=== PATIENT | female | born 1975 | race Caucasian/White ===

== ENCOUNTER → 2019-10-12 14:33 | Outpatient (CLI) | payer OTHER, SELFPAY ==
--- NOTE | 2019-10-12 14:37 | DI.US.S_ITS ---
PROCEDURE: US ABDOMEN COMPLETE INDICATIONS: CHANGE IN STOOLS, MUCUS IN STOOLS, DIARRHEA TECHNIQUE: Real-time scanning was performed of the abdominal and retroperitoneal organs, with image documentation. COMPARISON: [facility], [place], ABDOMEN COMPLETE, 07/24/2015, 9:59. FINDINGS: Liver: Liver is normal in size and homogeneous in echotexture. A 7 mm calcification can be seen within the liver. Gallbladder: Removed. Biliary ducts: Intrahepatic bile ducts are non-dilated. Extrahepatic bile duct caliber measures 7.5 mm, which is near the upper limits of normal for a post cholecystectomy patient. Pancreas: Not well-seen. Spleen: Spleen is normal in size and homogeneous in echotexture. Kidneys: Kidneys are normal in size and echotexture. Right kidney measures 10.3 cm long; left kidney measures 10.8 cm long. No hydronephrosis or nephrolithiasis. No solid masses. Aorta: Visualized aorta is normal in caliber at less than 3 cm. Iliacs: Proximal common iliac arteries are normal in caliber at less than 2.5 cm. IVC: Intrahepatic inferior vena cava is patent. Miscellaneous: No free abdominal fluid. IMPRESSION: Status post cholecystectomy. The common bile duct measures at the upper limits of normal for a post cholecystectomy patient. As clinically appropriate, an MRCP could be considered for further evaluation (assuming that there is no contraindication to MRI). There is a 7 mm calcification incidentally noted within the liver. Nonvisualization of the pancreas. Dictated by: Ben Shaikh M.D. on 10/12/2019 at 16:31 Approved by: Ben Shaikh M.D. on 10/12/2019 at 16:32
--- NOTE | 2019-10-12 14:37 | DI.US.S_ITS ---
PROCEDURE: US PELVIC COMPLETE INDICATIONS: PELVIC PAIN AND UTERINE MASS TECHNIQUE: Real-time scanning was performed of the pelvic organs, with image documentation. Additional endovaginal scanning was necessary due to incomplete visualization of the adnexal and endometrial structures by transabdominal scanning. COMPARISON: [facility], [place], PELVIC COMPLETE, 07/24/2015, 10:12. [facility], , US ABDOMEN COMPLETE, 10/12/2019, 15:30. FINDINGS: Transabdominal scanning: Limited scanning through the kidneys shows no hydronephrosis. No pathologic free abdominal or pelvic fluid. Endovaginal scanning: Uterus: Uterus demonstrates a generalized heterogeneous appearance, yet without focal fibroids identified. Uterus is normal in size at 7.3 x 3.3 x 4.1 cm. The endometrium measures 2-3 mm in combined thickness. Ovaries: The right ovary measures 2.5 x 1.7 x 1.5 cm. The left ovary measures 2.9 x 2.1 x 1.6 cm. The ovaries have a normal sonographic appearance, with note made of physiologic appearing cystic follicles involving the left ovary. No adnexal masses are seen. IMPRESSION: No significant pelvic ultrasound abnormality is seen. Dictated by: Ben Shaikh M.D. on 10/12/2019 at 16:30 Approved by: Ben Shaikh M.D. on 10/12/2019 at 16:31
== END ==
PROVIDERS: Family Provider Physician Assistant; PCP Physician Assistant; Referring Provider Nurse Practitioner; Visit Provider Nurse Practitioner
DX: R10.2 Pelvic and perineal pain (principal); N85.8 Other specified noninflammatory disorders of uterus; R19.5 Other fecal abnormalities; R19.7 Diarrhea, unspecified; Z90.49 Acquired absence of other specified parts of digestive tract
CPT/HCPCS: 76700; 76830; 76856

== ENCOUNTER → 2019-10-18 19:09 | Outpatient (CLI) | payer OTHER, SELFPAY ==
--- NOTE | 2019-10-18 19:10 | DI.MRI.S_ITS ---
PROCEDURE: MR ABDOMEN WO CON INDICATIONS: abnormal ultrasound TECHNIQUE: Coronal HASTE through the abdomen, axial 2-D FLASH in- and [id number], and breath-hold T2 FSE with fat saturation through the biliary system and pancreas. Oblique coronal and axial thin-slice HASTE, radial thick-slab HASTE centered on the extrahepatic bile ducts. Intravenous secretin: Not requested. COMPARISON: [facility], [place], HEPATOBILIARY SCAN WITH CCK, 03/19/2016, 14:24. [facility], , US ABDOMEN COMPLETE, 10/12/2019, 15:30. FINDINGS: Image quality: Excellent. Pancreas and biliary system: Intra- and extra-hepatic biliary ducts are non dilated. CBD measures 6 mm, (3/16). This is within normal exits in this post cholecystectomy patient. Pancreas is normal in morphology, without adjacent soft tissue edema. Pancreatic duct is normal in caliber, without developmental anomalies. Other solid organs: Liver is normal in size. Small simple cyst in the right lobe liver. No significant steatosis. Spleen is normal in size. No adrenal nodules. Both kidneys are normal in size, without hydronephrosis. Nodes and vessels: No retroperitoneal or mesenteric adenopathy by size criteria. Aorta and inferior vena cava are normal in size. Bowel and peritoneum: Unenhanced bowel loops are normal in caliber. No dilated loops of bowel. The left colon is decompressed. No free fluid. Lung bases: No basal pleural effusions. Heart size is normal. Bones and soft tissues: No ventral hernias. Bone marrow is of normal overall signal. IMPRESSION: Negative exam. No biliary ductal dilatation. Postcholecystectomy. Dictated by: Galen Kelsey M.D. on 10/18/2019 at 20:46 Approved by: Galen Kelsey M.D. on 10/18/2019 at 20:50
== END ==
PROVIDERS: Family Provider Physician Assistant; PCP Nurse Practitioner; Referring Provider Nurse Practitioner; Visit Provider Nurse Practitioner
DX: R93.89 Abnormal findings on diagnostic imaging of other specified body structures (principal); R10.9 Unspecified abdominal pain; R14.0 Abdominal distension (gaseous); R19.7 Diarrhea, unspecified; K76.89 Other specified diseases of liver; Z90.49 Acquired absence of other specified parts of digestive tract
CPT/HCPCS: 74181

== ENCOUNTER 2020-01-30 09:45 | Outpatient (RCR) | payer OTHER, SELFPAY ==
--- NOTE | 2020-01-02 13:11 | PT.OIE ---
Current Diagnoses Overactive bladder (01/02/20) Past Medical History (Last Reviewed 10/09/19 @ 11:57 by GILBERTO Kenney) Overactive bladder (Chronic) Past Surgical History (Last Reviewed 10/09/19 @ 11:57 by GILBERTO Kenney) Status post endometrial ablation Status post laparoscopic cholecystectomy Visit Care Team Role Provider Type GILBERTO Kenney Attending Provider [employer] Associate Primary Care Provider Referring Provider Specialty: [facility] Address: [address] [place] [address], [facility] Email: [email or web address] Physical Therapy Initial Evaluation PT-OP-A Visit Information Start: 01/02/20 07:47 Freq: Status: Active Protocol: Document 01/02/20 07:50 [facility] (Rec: 01/02/20 08:38 [facility] [id number]) Out-Patient Physical Therapy Visit Information Visit Information Visit Type Initial Evaluation Visit Start Time 08:15 Visit Stop Time 09:00 Total Visit Minutes 45 Visit Number 1 Evaluation Information Evaluation Date 01/02/20 PT-OP-B Current Condition Start: 01/02/20 07:47 Freq: Status: Active Protocol: Document 01/02/20 07:50 [facility] (Rec: 01/02/20 08:38 [facility] [id number]) Current Condition History of Current Condition Onset Date After her second Current Complaints c/o incomplete emptying, frequency and urgency History of Current Condition After having her second child Brook reports she saw a urologist as she was voiding all the time. Saw urologist and was told she had a tilted bladder. In Sep went into urgent care due to sharp pain with urination, pain in side and diarrhea. Her labs were negative for a infection and she had a MRI which was also negative. She is scheduled for a colonoscopy next week. She does describe a right side pain and pelvic pain that is intermittent and she is wondering if it is cyclical. Brook reports having a uterine ablation 8 years ago. Had gall bladder surgery 2016 due to side pains. Since her gall bladder surgery she has had more complaints of diarrhea. Other past medical history includes 2 child births 1 vaginal and 1 was a emergency . Was given hyoscyamine and this helps with the feeling like she has to void but not the actual voiding. After her uterine ablation she did feel cramping in the vaginal wall and felt cramping on the left side of the pelvic floor. This cramping now is intermittent and there are times when she doesn't notice it at all. Treatment Goals Patient/Caregiver Goals The patients goals are to improve bladder emptying and decrease urinary frequency and urgency Current Functional Impairments (Reported) Functional Limitations- Recreation/ The patient reports she avoids Hobbies places that don't have a restroom so this limits outings and recreation with her family. PT-OP-C Subjective Start: 01/02/20 07:47 Freq: Status: Active Protocol: Document 01/02/20 12:36 [facility] (Rec: 01/02/20 13:11 [facility] [id number]) Patient Questionnaires Pelvic Pain and Urgency/Frequency Patient Symptom Scale Pelvic Pain Score 17 PT-OP-F Manual Assessment Start: 01/02/20 07:47 Freq: Status: Active Protocol: Document 01/02/20 12:36 [facility] (Rec: 01/02/20 13:11 [facility] [email or web address]) Manual Assessments Soft Tissue Assessment Soft Tissue Mobility Assessment Scar tissue restrictions on the right side of the suprapubic fascia and over the incision, seperate incision due to an infection does have some decreased mobility on the right side, there is decreased bladder mobility in a superior direction Levator ani tightness and restriction on the left side PT-OP-I Pelvic Floor Start: 01/02/20 07:47 Freq: Status: Active Protocol: Document 01/02/20 12:36 [facility] (Rec: 01/02/20 13:11 [facility] [email or web address]) Pelvic Floor Assessment Urine Pelvic Floor Surgery No Urinary Symptoms Urge Sensation,Incomplete Emptying Leakage Size Small Leakage Cause Urge Other Leakage Causes leakage with strong cough or sneeze, can also occur despite activity and consists of a few drops, the patient wears panti koch Voiding Frequency 10+ times per day Nocturia 5 Urine Pad Type Panty Liner Pelvic Clock Pelvic Clock 12-3 Atrophy Pelvic Clock 3-6 Guarding Pelvic Clock 9-12 Atrophy Pelvic Clock Other tightness found on the left lateral wall of the levator ani, difficulty relaxing the pelvic floor following a contraction, able to facilitate a contraction of the anterior pelvic floor however this is weaker. Prolapse Uterine Prolapse Grade 1 Cystocele Grade 1 Contraction Ability Voluntary Contraction Weak Voluntary Relaxation Weak Manual Muscle Testing Left 3 Manual Muscle Testing Right 3 Manual Muscle Testing Anterior 3 Manual Muscle Testing Posterior 3 PT-OP-Q Treatments Start: 01/02/20 07:47 Freq: Status: Active Protocol: Document 01/02/20 12:36 [facility] (Rec: 01/02/20 13:11 [facility] [email or web address]) Therapeutic Exercises Supine Exercises 2 Supine Exercise Name pelvic floor long holds Reps/Minutes long holds x 10 reps hold x 10 reps and rest x 10 reps 1 Supine Exercise Name Happy baby stretch Side bilateral Reps/Minutes holding for 1-2 minutes Prone Exercises 1 Prone Exercise Name prone on elbows stretch for the anterior abdominal fascia Reps/Minutes 1-2 reps hold 30 seconds- 1 min Self-Care/Home Management Treatment Education Patient Education Home Exercise Program Other Education education on toileting strategies PT-OP-T Assessment and Plan Start: 01/02/20 07:47 Freq: Status: Active Protocol: Document 01/02/20 12:36 [facility] (Rec: 01/02/20 13:11 [facility] [id number]) Physical Therapy Assessment Rehab Potential Rehabilitation Potential Excellent Evaluation Complexity Number of Personal Factors/Comorbidities 0 Number of Body Systems Impaired 1-2 Clinical Presentation at Evaluation Stable Impairments Impairments Activity Tolerance,Soft Tissue Mobility,Strength Other Impairments inability to fully empty the bladder, frequent voiding, nocturia Goals Five Impairment Decreased strength of the anterior pelvic floor 3/5 [employer] Goal (LTG) Brook demonstrates improved strength of the anterior pelvic floor to 4/5 or better to help support the bladder for improved ability to void LTG Duration 8 weeks Four Impairment Scar tissue in the suprapubic fascia and decreased bladder mobility Short Term Goal (STG) With manual therapy techniques scar tissue is decreased and there is improved bladder mobility helping with both filling and emptying of the bladder STG Duration 5 weeks Three Impairment muscle guarding and spasm of the left lateral wall of the levator ani Short Term Goal (STG) Brook is educated in pelvic floor relaxation of the left lateral wall. She is educated when toileting to relax her pelvic floor to improve her ability to void. STG Duration 4 weeks Two Impairment Nocturia voiding up to 5 times at night [employer] Services Instructor Goal (LTG) Brook is able to reduce night time voiding to 0-1 time per night LTG Duration 8 Weeks One Impairment difficulty voiding and fully emptying the bladder [employer] Services Instructor Goal (LTG) Brook is able to sit to void and feel as if she is fully emptying her bladder. She is voiding 1 xm every 2-3 hours during the day. LTG Duration 8 weeks Assessment Summary Assessment Brook presents to physical therapy today with symptoms of inability to fully empty her bladder. She describes urgency and when she tries to void she has to make several attempts to fully empty. At night she will void 5-6 times before being able to fall asleep. She notes that she always has the feeling she needs to void. She has had symptoms of a UTI but recent lab work is negative for this. She is also scheduled for a colonoscopy next Tuesday as she has been having episodes of diarrhea since her gall bladder was removed. She does describe pelvic heaviness but only intermittent. She has had a uterus ablation so isn't having a menstrual cycle but does feel her heaviness can be cyclical. With examination today Brook presents with ability to facilitate a contraction of all parts of her levator ani. She is weaker in the anterior pelvic floor and left side of the levator ani is in a guarded hypertonic state. It is difficult for her to relax the left lateral wall. There is a grade I cystocele and uterine prolapse noted. Brook does have some scar tissue in the suprapubic fascia from her scar and has decreased bladder mobility in a superior direction. She also has a scar from a infection she had in the pelvis which there is some scar tissue surrounding this area as well. Treatment for Brook will be to work on pelvic floor endurance and increasing the anterior pelvic floor strength to help support the bladder. Treatment will also focus on the left lateral wall to relax . In order to void fully the pelvic floor needs to be able to fully relax. The cystocele may also be contributing to difficulty fully emptying so the goal will be to improve bladder support and decrease downward descent to improve the ability to void. Brook is a good candidate for PT and EMG biofeedback for pelvic floor strengthening will begin next visit. Physical Therapy Plan Frequency and Duration Frequency of Treatment 1x/Week Duration of Treatment 8 Plan of Care Start Date 01/02/20 Plan of Care End Date 02/27/20 Therapeutic Interventions Therapeutic Interventions Home Exercise Program, Neuromuscular Re-education, Patient/Caregiver Education, Self-Care/Home Management,Soft Tissue Mobilization, Therapeutic Exercises Modalities Biofeedback Next Visit Focus/Plan Next Note Type Treatment Note Next Visit Plan Review stretches established today and begin EMG biofeedback for pelvic floor endurance training.
--- NOTE | 2020-01-07 16:41 | PT.OTN ---
Current Diagnoses Overactive bladder (01/07/20) Pelvic muscle wasting (01/07/20) Nocturia (01/07/20) Physical Therapy Treatment Note PT-OP-A Visit Information Start: 01/02/20 07:47 Freq: Status: Active Protocol: Document 01/07/20 13:49 [facility] (Rec: 01/07/20 13:54 [facility] [id number]) Out-Patient Physical Therapy Visit Information Visit Information Visit Type Treatment Note Visit Note Stretching was easy, kegels were not easy, hard to maintain. Frustrating to try and maintain the hold Visit Start Time 13:50 Visit Stop Time 14:35 Total Visit Minutes 45 Visit Number 2 Evaluation Information Evaluation Date 01/02/20 PT-OP-B Current Condition Start: 01/02/20 07:47 Freq: Status: Active Protocol: Document 01/02/20 07:50 [facility] (Rec: 01/02/20 08:38 [facility] [id number]) Current Condition History of Current Condition Onset Date After her second Current Complaints c/o incomplete emptying, frequency and urgency History of Current Condition After having her second child Brook reports she saw a urologist as she was voiding all the time. Saw urologist and was told she had a tilted bladder. In Sep went into urgent care due to sharp pain with urination, pain in side and diarrhea. Her labs were negative for a infection and she had a MRI which was also negative. She is scheduled for a colonoscopy next week. She does describe a right side pain and pelvic pain that is intermittent and she is wondering if it is cyclical. Brook reports having a uterine ablation 8 years ago. Had gall bladder surgery 2016 due to side pains. Since her gall bladder surgery she has had more complaints of diarrhea. Other past medical history includes 2 child births 1 vaginal and 1 was a emergency . Was given hyoscyamine and this helps with the feeling like she has to void but not the actual voiding. After her uterine ablation she did feel cramping in the vaginal wall and felt cramping on the left side of the pelvic floor. This cramping now is intermittent and there are times when she doesn't notice it at all. Treatment Goals Patient/Caregiver Goals The patients goals are to improve bladder emptying and decrease urinary frequency and urgency Current Functional Impairments (Reported) Functional Limitations- Recreation/ The patient reports she avoids Hobbies places that don't have a restroom so this limits outings and recreation with her family. PT-OP-C Subjective Start: 01/02/20 07:47 Freq: Status: Active Protocol: Document 01/07/20 16:33 [facility] (Rec: 01/07/20 16:41 [facility] [email or web address]) OP-PT Subjective Patient Comments Patient Comments pt reports it has been difficult to do the endurance exercises as she feels she has a difficult time maintaining the hold time. Pt reports she has a colonoscopy on tuesday Patient Reported Progress Same PT-OP-F Manual Assessment Start: 01/02/20 07:47 Freq: Status: Active Protocol: Document 01/02/20 12:36 [facility] (Rec: 01/02/20 13:11 [facility] [email or web address]) Manual Assessments Soft Tissue Assessment Soft Tissue Mobility Assessment Scar tissue restrictions on the right side of the suprapubic fascia and over the incision, seperate incision due to an infection does have some decreased mobility on the right side, there is decreased bladder mobility in a superior direction Levator ani tightness and restriction on the left side PT-OP-I Pelvic Floor Start: 01/02/20 07:47 Freq: Status: Active Protocol: Document 01/02/20 12:36 [facility] (Rec: 01/02/20 13:11 [facility] [email or web address]) Pelvic Floor Assessment Urine Pelvic Floor Surgery No Urinary Symptoms Urge Sensation,Incomplete Emptying Leakage Size Small Leakage Cause Urge Other Leakage Causes leakage with strong cough or sneeze, can also occur despite activity and consists of a few drops, the patient wears panti koch Voiding Frequency 10+ times per day Nocturia 5 Urine Pad Type Panty Liner Pelvic Clock Pelvic Clock 12-3 Atrophy Pelvic Clock 3-6 Guarding Pelvic Clock 9-12 Atrophy Pelvic Clock Other tightness found on the left lateral wall of the levator ani, difficulty relaxing the pelvic floor following a contraction, able to facilitate a contraction of the anterior pelvic floor however this is weaker. Prolapse Uterine Prolapse Grade 1 Cystocele Grade 1 Contraction Ability Voluntary Contraction Weak Voluntary Relaxation Weak Manual Muscle Testing Left 3 Manual Muscle Testing Right 3 Manual Muscle Testing Anterior 3 Manual Muscle Testing Posterior 3 PT-OP-Q Treatments Start: 01/02/20 07:47 Freq: Status: Active Protocol: Document 01/07/20 16:33 [facility] (Rec: 01/07/20 16:41 [facility] [id number]) Therapeutic Exercises Supine Exercises 3 Supine Exercise Name ball squeeze with pelvic floor contraction Reps/Minutes x 10 2 Supine Exercise Name pelvic floor long holds Reps/Minutes long holds x 10 reps hold x 10 reps and rest x 10 reps Comments began EMG biofeedback today for visual image with pelvic floor contraction 1 Supine Exercise Name Happy baby stretch Side bilateral Reps/Minutes holding for 1-2 minutes Prone Exercises 1 Prone Exercise Name prone on elbows stretch for the anterior abdominal fascia Reps/Minutes 1-2 reps hold 30 seconds- 1 min Manual Therapy Treatment Soft Tissue Mobilization 3 Body Location bladder mobilizations in a superior direction and side to side Comments bladder mobilizations 2 Body Location ILU massage over the colon and pt instructed in this for home 1 Body Location scar tissue release in the suprapubic fascia PT-OP-T Assessment and Plan Start: 01/02/20 07:47 Freq: Status: Active Protocol: Document 01/07/20 16:33 [facility] (Rec: 01/07/20 16:41 [facility] [id number]) Physical Therapy Assessment Assessment Summary Assessment We began scar tissue massage, MFR, and bladder mobilizations today and Brook tolerated this well. She is having difficulty with her long sustained pelvic floor contractions. I did give her a ball squeeze to try to help with endurance holds. She does feel like she keeps her abdominal wall tight throughout the day. She would benefit to progressing to quadruped TA and cat cow. Physical Therapy Plan Next Visit Focus/Plan Next Note Type Treatment Note Next Visit Plan review stretches and begin TA contract relax and cat cow
--- NOTE | 2020-01-16 16:18 | PT.OTN ---
Current Diagnoses Overactive bladder (01/16/20) Pelvic muscle wasting (01/16/20) Nocturia (01/16/20) Physical Therapy Treatment Note PT-OP-A Visit Information Start: 01/02/20 07:47 Freq: Status: Active Protocol: Document 01/16/20 11:18 [facility] (Rec: 01/16/20 13:35 [facility] [id number]) Out-Patient Physical Therapy Visit Information Visit Information Visit Type Treatment Note Visit Start Time 11:15 Visit Stop Time 12:00 Total Visit Minutes 45 Visit Number 3 PT-OP-B Current Condition Start: 01/02/20 07:47 Freq: Status: Active Protocol: Document 01/02/20 07:50 [facility] (Rec: 01/02/20 08:38 [facility] [id number]) Current Condition History of Current Condition Onset Date After her second Current Complaints c/o incomplete emptying, frequency and urgency History of Current Condition After having her second child Brook reports she saw a urologist as she was voiding all the time. Saw urologist and was told she had a tilted bladder. In Sep went into urgent care due to sharp pain with urination, pain in side and diarrhea. Her labs were negative for a infection and she had a MRI which was also negative. She is scheduled for a colonoscopy next week. She does describe a right side pain and pelvic pain that is intermittent and she is wondering if it is cyclical. Brook reports having a uterine ablation 8 years ago. Had gall bladder surgery 2016 due to side pains. Since her gall bladder surgery she has had more complaints of diarrhea. Other past medical history includes 2 child births 1 vaginal and 1 was a emergency . Was given hyoscyamine and this helps with the feeling like she has to void but not the actuall voiding. After her uterine ablation she did feel cramping in the vaginal wall and felt cramping on the left side of the pelvic floor. This cramping now is intermittent and there are times when she doesn't notice it at all. Treatment Goals Patient/Caregiver Goals The patients goals are to improve bladder emptying and decrease urinary frequency and urgency Current Functional Impairments (Reported) Functional Limitations- Recreation/ The patient reports she avoids Hobbies places that don't have a restroom so this limits outings and recreation with her family. PT-OP-C Subjective Start: 01/02/20 07:47 Freq: Status: Active Protocol: Document 01/16/20 11:18 [facility] (Rec: 01/16/20 13:35 [facility] [id number]) OP-PT Subjective Patient Comments Patient Comments Had her colonscopy on tuesday and it was negative. They found a polyup but that was it . She was not able to do all her self massage work due to feeling of swelling and bloating following her colonoscopy. PT-OP-F Manual Assessment Start: 01/02/20 07:47 Freq: Status: Active Protocol: Document 01/02/20 12:36 [facility] (Rec: 01/02/20 13:11 [facility] [email or web address]) Manual Assessments Soft Tissue Assessment Soft Tissue Mobility Assessment Scar tissue restrictions on the right side of the suprapubic fascia and over the incision, seperate insicion due to an infection does have some decreased mobility on the right side, there is decreased bladder mobility in a superior direction Levator ani tightness and restriction on the left side PT-OP-I Pelvic Floor Start: 01/02/20 07:47 Freq: Status: Active Protocol: Document 01/02/20 12:36 [facility] (Rec: 01/02/20 13:11 [facility] [email or web address]) Pelvic Floor Assessment Urine Pelvic Floor Surgery No Urinary Symptoms Urge Sensation,Incomplete Emptying Leakage Size Small Leakage Cause Urge Other Leakage Causes leakage with strong cough or sneeze, can also occur despite activity and consists of a few drops, the patient wears panti koch Voiding Frequency 10+ times per day Nocturia 5 Urine Pad Type Panty Liner Pelvic Clock Pelvic Clock 12-3 Atrophy Pelvic Clock 3-6 Guarding Pelvic Clock 9-12 Atrophy Pelvic Clock Other tightness found on the left lateral wall of the levator ani, difficulty relaxing the pelvic floor following a contraction, able to facilitate a contraction of the anterior pelvic floor however this is weaker. Prolapse Uterine Prolapse Grade 1 Cystocele Grade 1 Contraction Ability Voluntary Contraction Weak Voluntary Relaxation Weak Manual Muscle Testing Left 3 Manual Muscle Testing Right 3 Manual Muscle Testing Anterior 3 Manual Muscle Testing Posterior 3 PT-OP-Q Treatments Start: 01/02/20 07:47 Freq: Status: Active Protocol: Document 01/16/20 16:14 [facility] (Rec: 01/16/20 16:18 [facility] [email or web address]) Therapeutic Exercises Supine Exercises 4 Supine Exercise Name Roll outs with theraband Comments also gave a static stretch rolling out to relax the pelvic floor 3 Supine Exercise Name ball squeeze with pelvic floor contraction Reps/Minutes x 10 10 second hold with 10 second relaxation Prone Exercises 1 Prone Exercise Name prone on elbows stretch for the anterior abdominal fascia Reps/Minutes 1-2 reps hold 30 seconds- 1 min Manual Therapy Treatment Soft Tissue Mobilization 3 Body Location bladder mobilizations in a superior direction and side to side Comments bladder mobilizations 2 Body Location ILU massage over the colon and pt instructed in this for home 1 Body Location scar tissue release in the suprapubic fascia PT-OP-T Assessment and Plan Start: 01/02/20 07:47 Freq: Status: Active Protocol: Document 01/16/20 16:14 [facility] (Rec: 01/16/20 16:18 [facility] [email or web address]) Physical Therapy Assessment Assessment Summary Assessment Using the ball to help her with endurance holds, NMES may be useful to start next visit if still having a difficult time with long holds, Pelvic floor tone started at 4.0 today but was able to relax down to 2. Average was 11.9 with 28.7 uv max. Physical Therapy Plan Frequency and Duration Frequency of Treatment 1x/Week Duration of Treatment 8 Plan of Care Start Date 01/02/20 Plan of Care End Date 02/27/20
--- NOTE | 2020-01-23 12:20 | PT.OTN ---
Current Diagnoses Overactive bladder (01/23/20) Pelvic muscle wasting (01/23/20) Nocturia (01/23/20) Physical Therapy Treatment Note PT-OP-A Visit Information Start: 01/02/20 07:47 Freq: Status: Active Protocol: Document 01/23/20 11:18 [facility] (Rec: 01/23/20 12:20 [facility] [id number]) Out-Patient Physical Therapy Visit Information Visit Information Visit Type Treatment Note Visit Start Time 11:15 PT-OP-B Current Condition Start: 01/02/20 07:47 Freq: Status: Active Protocol: Document 01/02/20 07:50 [facility] (Rec: 01/02/20 08:38 [facility] [id number]) Current Condition History of Current Condition Onset Date After her second Current Complaints c/o incomplete emptying, frequency and urgency History of Current Condition After having her second child Brook reports she saw a urologist as she was voiding all the time. Saw urologist and was told she had a tilted bladder. In Sep went into urgent care due to sharp pain with urination, pain in side and diarrhea. Her labs were negative for a infection and she had a MRI which was also negative. She is scheduled for a colonoscopy next week. She does describe a right side pain and pelvic pain that is intermittent and she is wondering if it is cyclical. Brook reports having a uterine ablation 8 years ago. Had gall bladder surgery 2016 due to side pains. Since her gall bladder surgery she has had more complaints of diarrhea. Other past medical history includes 2 child births 1 vaginal and 1 was a emergency . Was given hyoscyamine and this helps with the feeling like she has to void but not the actuall voiding. After her uterine ablation she did feel cramping in the vaginal wall and felt cramping on the left side of the pelvic floor. This cramping now is intermittent and there are times when she doesn't notice it at all. Treatment Goals Patient/Caregiver Goals The patients goals are to improve bladder emptying and decrease urinary frequency and urgency Current Functional Impairments (Reported) Functional Limitations- Recreation/ The patient reports she avoids Hobbies places that don't have a restroom so this limits outings and recreation with her family. PT-OP-C Subjective Start: 01/02/20 07:47 Freq: Status: Active Protocol: Document 01/23/20 11:18 [facility] (Rec: 01/23/20 12:20 [facility] [id number]) OP-PT Subjective Patient Comments Patient Comments pt ran and did pilates today prior to PT, has been trying to do the 10 second hold time. 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 PT-OP-F Manual Assessment Start: 01/02/20 07:47 Freq: Status: Active Protocol: Document 01/02/20 12:36 [facility] (Rec: 01/02/20 13:11 [facility] [email or web address]) Manual Assessments Soft Tissue Assessment Soft Tissue Mobility Assessment Scar tissue restrictions on the right side of the suprapubic fascia and over the incision, seperate insicion due to an infection does have some decreased mobility on the right side, there is decreased bladder mobility in a superior direction Levator ani tightness and restriction on the left side PT-OP-I Pelvic Floor Start: 01/02/20 07:47 Freq: Status: Active Protocol: Document 01/02/20 12:36 [facility] (Rec: 01/02/20 13:11 [facility] [email or web address]) Pelvic Floor Assessment Urine Pelvic Floor Surgery No Urinary Symptoms Urge Sensation,Incomplete Emptying Leakage Size Small Leakage Cause Urge Other Leakage Causes leakage with strong cough or sneeze, can also occur despite activity and consists of a few drops, the patient wears panti koch Voiding Frequency 10+ times per day Nocturia 5 Urine Pad Type Panty Liner Pelvic Clock Pelvic Clock 12-3 Atrophy Pelvic Clock 3-6 Guarding Pelvic Clock 9-12 Atrophy Pelvic Clock Other tightness found on the left lateral wall of the levator ani, difficulty relaxing the pelvic floor following a contraction, able to facilitate a contraction of the anterior pelvic floor however this is weaker. Prolapse Uterine Prolapse Grade 1 Cystocele Grade 1 Contraction Ability Voluntary Contraction Weak Voluntary Relaxation Weak Manual Muscle Testing Left 3 Manual Muscle Testing Right 3 Manual Muscle Testing Anterior 3 Manual Muscle Testing Posterior 3 PT-OP-Q Treatments Start: 01/02/20 07:47 Freq: Status: Active Protocol: Document 01/23/20 11:18 [facility] (Rec: 01/23/20 12:20 [facility] [id number]) Therapeutic Exercises Supine Exercises 4 Supine Exercise Name Roll outs with theraband Comments also gave a static stretch rolling out to relax the pelvic floor 2 Supine Exercise Name pelvic floor long holds Reps/Minutes long holds x 10 reps hold x 10 reps and rest x 10 reps Comments began EMG biofeedback today for visual image with pelvic floor contraction Manual Therapy Treatment Soft Tissue Mobilization 3 Body Location bladder mobilizations in a superior direction and side to side Comments bladder mobilizations 2 Body Location ILU massage over the colon and pt instructed in this for home 1 Body Location scar tissue release in the suprapubic fascia Neuro Re-Education Treatment Other Activities 1 Details NMES for the pelvic floor Comments pt could feel the muscles nessa internally more with NMES today PT-OP-T Assessment and Plan Start: 01/02/20 07:47 Freq: Status: Active Protocol: Document 01/23/20 11:18 [facility] (Rec: 01/23/20 12:20 [facility] [id number]) Physical Therapy Assessment Assessment Summary Assessment Still a little tighter on the left side but able to relax inbetween contractions now. Average on EMG biofeedback has increased to 13.0 uv and mas of 23 uv. Good improvement with strength. NMES was very helpful today, Brook may benefit from trial of hoome use Physical Therapy Plan Frequency and Duration Frequency of Treatment 1x/Week Duration of Treatment 8 Plan of Care Start Date 01/02/20 Plan of Care End Date 02/27/20 Therapeutic Interventions Therapeutic Interventions Home Exercise Program, Neuromuscular Re-education, Patient/Caregiver Education, Self-Care/Home Management,Soft Tissue Mobilization, Therapeutic Exercises Modalities Biofeedback
--- NOTE | 2020-01-30 14:14 | PT.OTN ---
Current Diagnoses Overactive bladder (01/30/20) Pelvic muscle wasting (01/30/20) Nocturia (01/30/20) Physical Therapy Treatment Note PT-OP-A Visit Information Start: 01/02/20 07:47 Freq: Status: Active Protocol: Document 01/30/20 14:01 [facility] (Rec: 01/30/20 14:14 [facility] [id number]) Out-Patient Physical Therapy Visit Information Visit Information Visit Type Treatment Note Visit Start Time 11:15 Visit Stop Time 12:00 Total Visit Minutes 45 Visit Number 5 PT-OP-B Current Condition Start: 01/02/20 07:47 Freq: Status: Active Protocol: Document 01/02/20 07:50 [facility] (Rec: 01/02/20 08:38 [facility] [id number]) Current Condition History of Current Condition Onset Date After her second Current Complaints c/o incomplete emptying, frequency and urgency History of Current Condition After having her second child Brook reports she saw a urologist as she was voiding all the time. Saw urologist and was told she had a tilted bladder. In Sep went into urgent care due to sharp pain with urination, pain in side and diarrhea. Her labs were negative for a infection and she had a MRI which was also negative. She is scheduled for a colonoscopy next week. She does describe a right side pain and pelvic pain that is intermittent and she is wondering if it is cyclical. Brook reports having a uterine ablation 8 years ago. Had gall bladder surgery 2016 due to side pains. Since her gall bladder surgery she has had more complaints of diarrhea. Other past medical history includes 2 child births 1 vaginal and 1 was a emergency . Was given hyoscyamine and this helps with the feeling like she has to void but not the actuall voiding. After her uterine ablation she did feel cramping in the vaginal wall and felt cramping on the left side of the pelvic floor. This cramping now is intermittent and there are times when she doesn't notice it at all. Treatment Goals Patient/Caregiver Goals The patients goals are to improve bladder emptying and decrease urinary frequency and urgency Current Functional Impairments (Reported) Functional Limitations- Recreation/ The patient reports she avoids Hobbies places that don't have a restroom so this limits outings and recreation with her family. PT-OP-C Subjective Start: 01/02/20 07:47 Freq: Status: Active Protocol: Document 01/30/20 14:01 [facility] (Rec: 01/30/20 14:14 [facility] [id number]) OP-PT Subjective Patient Comments Patient Comments pt reports she had a double void the other day instead of having to try 4-5 times to empty her bladder. She is also interested in using the stimulation at home as she felt taht she could feel her muscles differently following this. PT-OP-F Manual Assessment Start: 01/02/20 07:47 Freq: Status: Active Protocol: Document 01/02/20 12:36 [facility] (Rec: 01/02/20 13:11 [facility] [email or web address]) Manual Assessments Soft Tissue Assessment Soft Tissue Mobility Assessment Scar tissue restrictions on the right side of the suprapubic fascia and over the incision, seperate insicion due to an infection does have some decreased mobility on the right side, there is decreased bladder mobility in a superior direction Levator ani tightness and restriction on the left side PT-OP-I Pelvic Floor Start: 01/02/20 07:47 Freq: Status: Active Protocol: Document 01/02/20 12:36 [facility] (Rec: 01/02/20 13:11 [facility] [id number]) Pelvic Floor Assessment Urine Pelvic Floor Surgery No Urinary Symptoms Urge Sensation,Incomplete Emptying Leakage Size Small Leakage Cause Urge Other Leakage Causes leakage with strong cough or sneeze, can also occur despite activity and consists of a few drops, the patient wears panti koch Voiding Frequency 10+ times per day Nocturia 5 Urine Pad Type Panty Liner Pelvic Clock Pelvic Clock 12-3 Atrophy Pelvic Clock 3-6 Guarding Pelvic Clock 9-12 Atrophy Pelvic Clock Other tightness found on the left lateral wall of the levator ani, difficulty relaxing the pelvic floor following a contraction, able to facilitate a contraction of the anterior pelvic floor however this is weaker. Prolapse Uterine Prolapse Grade 1 Cystocele Grade 1 Contraction Ability Voluntary Contraction Weak Voluntary Relaxation Weak Manual Muscle Testing Left 3 Manual Muscle Testing Right 3 Manual Muscle Testing Anterior 3 Manual Muscle Testing Posterior 3 PT-OP-Q Treatments Start: 01/02/20 07:47 Freq: Status: Active Protocol: Document 01/30/20 14:01 [facility] (Rec: 01/30/20 14:14 [facility] [email or web address]) Therapeutic Exercises Supine Exercises 2 Supine Exercise Name pelvic floor long holds Reps/Minutes long holds x 10 reps hold x 10 reps and rest x 10 reps Comments began EMG biofeedback today for visual image with pelvic floor contraction Manual Therapy Treatment Soft Tissue Mobilization 3 Body Location bladder mobilizations in a superior direction and side to side Comments bladder mobilizations 2 Body Location ILU massage over the colon and pt instructed in this for home 1 Body Location scar tissue release in the suprapubic fascia Neuro Re-Education Treatment Other Activities 1 Details NMES for the pelvic floor Reps/Duration x 10 min PT-OP-T Assessment and Plan Start: 01/02/20 07:47 Freq: Status: Active Protocol: Document 01/30/20 14:01 [facility] (Rec: 01/30/20 14:14 [facility] [email or web address]) Physical Therapy Assessment Goals Five Impairment Decreased strength of the anterior pelvic floor 3/5 Industrial Engineering Technologist Goal (LTG) Brook demonstrates improved strength of the anterior pelvic floor to 4/5 or better to help support the bladder for improved ability to void EXCELLENT PROGRESS LTG Duration 8 weeks Four Impairment Scar tissue in the suprapubic fascia and decreased bladder mobility Short Term Goal (STG) With manual therapy techniques scar tissue is decreased and there is improved bladder mobility helping with both filling and emptying of the bladder SOME PROGRESS STG Duration 5 weeks Three Impairment muscle guarding and spasm of the left lateral wall of the levator ani Short Term Goal (STG) Brook is educated in pelvic floor relaxation of the left lateral wall. She is educated when toileting to relax her pelvic floor to improve her ability to void. GOAL MET STG Duration 4 weeks Two Impairment Nocturia voiding up to 5 times at night Industrial Engineering Technologist Goal (LTG) Brook is able to reduce night time voiding to 0-1 time per night SOME PROGRESS. LTG Duration 8 Weeks One Impairment difficulty voiding and fully emptying the bladder Half-Way Goal (LTG) Brook is able to sit to void and feel as if she is fully emptying her bladder. She is voiding 1 xm every 2-3 hours during the day. SOME PROGRESS LTG Duration 8 weeks Assessment Summary Assessment At this point Brook is going to work on her own with her pelvic floor exercises and stretches. She was given the paperwork today for the home NMES rental and she may try renting it for a month. She has more than doubled her pelvic floor strength on EMG biofeedback. Average work today is 13.0 with max contraction of 23.1 uv. Her resting tone is 5.4 avg. Physical Therapy Plan Discharge Physical Therapy Discharge Reasons No Longer Attending PT Discharge Comments Brook plans on working with her exercises at home. She may also order the home NMES and was instructed to call if she has any questions
== END 2020-01-30 17:00 ==
LOC: PHYS 09:45
PROVIDERS: PCP Nurse Practitioner; Referring Provider Nurse Practitioner; Visit Provider Nurse Practitioner
DX: N32.81 Overactive bladder (principal); N81.84 Pelvic muscle wasting; R35.1 Nocturia
CPT/HCPCS: 97110; 97112; 97140; 97161

== ENCOUNTER → 2020-06-12 11:00 | Outpatient (CLI) | payer OTHER, SELFPAY ==
--- NOTE | 2020-06-12 11:03 | DI.MG.S_ITS ---
BILATERAL DIGITAL SCREENING MAMMOGRAM 3D/2D WITH CAD: 06/12/2020 CLINICAL: Routine screening. Family history of breast cancer. Comparison is made to exams dated: 08/18/2017 mammogram and 11/13/2018 mammogram - outside location. There are scattered fibroglandular elements in both breasts. Current study was also evaluated with a Computer Aided Detection (CAD) system. No significant masses, calcifications, or other findings are seen in either breast. There has been no significant interval change. IMPRESSION: NEGATIVE There is no mammographic evidence of malignancy. A 1 year screening mammogram is recommended. This exam was interpreted at Station ID: [id number]. NOTE: For mammograms, a report in lay terms will be sent to the patient. Approximately 15% of breast malignancies will not be visualized mammographically. In the management of a palpable breast mass, a negative mammogram must not discourage biopsy of a clinically suspicious lesion. Electronically Signed By: Harvey corado/leon:06/12/2020 11:43:50 letter sent: Normal Exam ACR BI-RADS Category 1: Negative 3341F
== END ==
PROVIDERS: PCP Nurse Practitioner Family; Referring Provider Nurse Practitioner Family; Visit Provider Nurse Practitioner Family
DX: Z12.31 Encounter for screening mammogram for malignant neoplasm of breast (principal); Z80.3 Family history of malignant neoplasm of breast
CPT/HCPCS: 77063; 77067

== ENCOUNTER → 2020-07-10 07:36 | Outpatient (CLI) | payer OTHER, SELFPAY ==
[2020-07-10 08:33] LABS: Hematocrit 39.7 % (36-46); Hemoglobin 13.5 g/dL (12.0-16.0); Mean Corpuscular HGB Conc 34.1 % (30-36); Mean Corpuscular Hemoglobin 30.9 PG (26-34); Mean Corpuscular Volume 90.8 fL (80-100); Platelet Count 284 X10^3/uL (150-400); Red Blood Cell Count 4.37 X10^6/uL (4.0-5.2); Red Cell Distribution Width 13.1 % (11.6-14.8); White Blood Cell Count 4.6 X10^3/uL (4.5-11.0)
[2020-07-10 08:52] LABS: Alanine Aminotransferase 43 IU/L (<35); Albumin 4.5 g/dL (3.5-5.0); Albumin Globulin Ratio 1.4 (1.0-2.8); Alkaline Phosphatase 71 U/L (38-126); Aspartate Aminotransferase 35 IU/L (14-36); BUN Creatinine Ratio 16.8 (6-22); Bilirubin Total 0.5 mg/dL (0.2-1.3); Blood Urea Nitrogen 16 mg/dL (7-17); Calcium 9.2 mg/dL (8.4-10.2); Carbon Dioxide 29 mmol/L (22-32); Chloride 104 mmol/L (98-107); Cholesterol 210 mg/dL (140-199); Estimated Glomerular Filt Rate > 60.0 mL/min (>60); Globulin 3.3 g/dL (1.7-4.1); Glucose 106 mg/dL (70-100); HDL Cholesterol 58 mg/dL (40-60); HEMOLYSIS < 15 (0-50); LDL Cholesterol Calculated 135 mg/dL (<100); Potassium 4.1 mmol/L (3.4-5.1); Sodium 137 mmol/L (137-145); Total Protein 7.8 g/dL (6.3-8.2); Triglycerides 83 mg/dL (35-150)
== END ==
PROVIDERS: PCP Nurse Practitioner Family; Referring Provider Nurse Practitioner Family; Visit Provider Nurse Practitioner Family
DX: Z00.00 Encounter for general adult medical examination without abnormal findings (principal); Z13.6 Encounter for screening for cardiovascular disorders
CPT/HCPCS: 36415; 80053; 80061; 85027

== ENCOUNTER → 2021-05-21 15:06 | Outpatient (CLI) | payer OTHER, SELFPAY ==
[2021-05-21 16:06] LABS: Add Manual Diff / Slide Review NO; Basophils Absolute Auto 0 /uL (0-100); Basophils Percent Auto 0.6 % (0-2); Eosinophils Absolute Auto 100 /uL (0-450); Eosinophils Percent Auto 1.2 % (2-4); Hematocrit 38.8 % (36-46); Lymphocytes Absolute Auto 1100 /uL (1100-4500); Lymphocytes Percent Auto 18.4 % (25-40); Mean Corpuscular HGB Conc 33.5 % (30-36); Mean Corpuscular Hemoglobin 30.4 PG (26-34); Mean Corpuscular Volume 90.5 fL (80-100); Monocytes Absolute Auto 300 /uL (0-900); Monocytes Percent Auto 4.8 % (3-14); Neutrophils Absolute Auto 4300 /uL (1500-7000); Platelet Count 294 X10^3/uL (150-400); Red Blood Cell Count 4.29 X10^6/uL (4.0-5.2); Red Cell Distribution Width 13.2 % (11.6-14.8); White Blood Cell Count 5.7 X10^3/uL (4.5-11.0)
[2021-05-21 16:24] LABS: Alanine Aminotransferase 26 IU/L (<35); Albumin 4.4 g/dL (3.5-5.0); Albumin Globulin Ratio 1.5 (1.0-2.8); Alkaline Phosphatase 62 U/L (38-126); Aspartate Aminotransferase 31 IU/L (14-36); BUN Creatinine Ratio 24.4 (6-22); Bilirubin Total 0.2 mg/dL (0.2-1.3); Blood Urea Nitrogen 19 mg/dL (7-17); Calcium 9.2 mg/dL (8.4-10.2); Carbon Dioxide 30 mmol/L (22-32); Chloride 105 mmol/L (98-107); Estimated Glomerular Filt Rate > 60.0 mL/min (>60); Glucose 101 mg/dL (70-100); HEMOLYSIS < 15 (0-50); Potassium 4.4 mmol/L (3.4-5.1); Sodium 140 mmol/L (137-145); Total Protein 7.4 g/dL (6.3-8.2)
[2021-05-21 17:21] LABS: TSH w/ Reflex to FT4 1.48 uIU/mL (0.47-4.68)
[2021-05-21 19:48] LABS: Appearance Urine UA CLOUDY; Bilirubin Urine UA NEGATIVE (NEGATIVE); Color Urine UA YELLOW; Glucose Urine UA NEGATIVE (Negative); Ketones Urine UA NEGATIVE (NEGATIVE); Leukocyte Esterase Urine UA NEGATIVE (NEGATIVE); Nitrite Urine UA NEGATIVE (Negative); Occult Blood Urine UA 1+ (Negative); Protein Urine UA NEGATIVE (Negative); Specific Gravity Urine UA 1.025 (1.000-1.035); Urobilinogen Urine UA 0.2 E.U./dL (0.2)
[2021-05-21 20:03] LABS: Amorphous Sediment Urine 4+; RBC Urine 1-5/HPF (0-5/HPF); Squamous Epithelial Cell Urine 0-1 /HPF (0-5/HPF); WBC Urine 0-1/HPF (0-5/HPF)
[2021-05-21 20:04] LABS: Bacteria Urine None Seen; Culture Indicated Urine Cult Not Indicated; Mucus Urine 1+ (Negative)
== END ==
PROVIDERS: PCP Nurse Practitioner Family; Referring Provider Nurse Practitioner Family; Visit Provider Nurse Practitioner Family
DX: Z00.00 Encounter for general adult medical examination without abnormal findings (principal); Z90.49 Acquired absence of other specified parts of digestive tract; R14.0 Abdominal distension (gaseous); M54.9 Dorsalgia, unspecified
CPT/HCPCS: 36415; 80053; 81001; 84443; 85025

== ENCOUNTER → 2021-06-02 09:40 | Outpatient (CLI) | payer OTHER, SELFPAY ==
--- NOTE | 2021-06-02 09:41 | DI.US.S_ITS ---
PROCEDURE: US ABDOMEN COMPLETE INDICATIONS: back pain, abd bloat feels like gallstones, spasms TECHNIQUE: Real-time scanning was performed of the abdominal and retroperitoneal organs, with image documentation. COMPARISON: [facility], US, ABDOMEN COMPLETE, 07/24/2015, 9:59. [facility], MR, MR ABDOMEN WO CON, 10/18/2019, 19:55. [facility], US, US ABDOMEN COMPLETE, 10/12/2019, 15:30. FINDINGS: Liver: Liver is normal in size and homogeneous in echotexture. There is a presumed calcified focus again seen involving the right liver that measures up to 1 cm, with posterior shadowing. Gallbladder: Removed. Biliary ducts: Intrahepatic bile ducts are non-dilated. Extrahepatic bile duct caliber measures 7 mm. Normal is 6-7 mm or less in diameter, or 10 mm or less post-cholecystectomy. Pancreas: Visualized portions of the pancreas are sonographically normal. Spleen: Spleen is normal in size and homogeneous in echotexture. Kidneys: Kidneys are normal in size and echotexture. Right kidney measures 11.5 cm long; left kidney measures 11.2 cm long. No hydronephrosis or nephrolithiasis. No solid masses. Aorta: Visualized aorta is normal in caliber at less than 3 cm. Iliacs: Proximal common iliac arteries are normal in caliber at less than 2.5 cm. IVC: Intrahepatic inferior vena cava is patent. Miscellaneous: No free abdominal fluid. IMPRESSION: Status post cholecystectomy, without biliary dilatation. A 1 cm presumed calcified focus is again seen involving the liver, which is regarded to be benign. Dictated by: Ben Shaikh M.D. on 06/02/2021 at 10:04 Approved by: Ben Shaikh M.D. on 06/02/2021 at 10:06
== END ==
PROVIDERS: PCP Nurse Practitioner Family; Referring Provider Nurse Practitioner Family; Visit Provider Nurse Practitioner Family
DX: R14.0 Abdominal distension (gaseous) (principal); M54.9 Dorsalgia, unspecified; R10.11 Right upper quadrant pain; Z90.49 Acquired absence of other specified parts of digestive tract
CPT/HCPCS: 76700

== ENCOUNTER → 2021-06-18 12:28 | Outpatient (CLI) | payer OTHER, SELFPAY ==
--- NOTE | 2021-06-18 12:30 | DI.MG.S_ITS ---
BILATERAL DIGITAL SCREENING MAMMOGRAM 3D/2D WITH CAD: 06/18/2021 CLINICAL: Routine screening. Family history of breast cancer. Comparison is made to exams dated: 06/12/2020 mammogram - [facility], 11/13/2018 mammogram, 11/13/2018 ultrasound, and 08/18/2017 mammogram - outside location. There are scattered fibroglandular elements in both breasts. Current study was also evaluated with a Computer Aided Detection (CAD) system. No significant masses, calcifications, or other findings are seen in either breast. There has been no significant interval change. IMPRESSION: NEGATIVE There is no mammographic evidence of malignancy. A 1 year screening mammogram is recommended. This exam was interpreted at Station ID: [id number]. NOTE: For mammograms, a report in lay terms will be sent to the patient. Approximately 15% of breast malignancies will not be visualized mammographically. In the management of a palpable breast mass, a negative mammogram must not discourage biopsy of a clinically suspicious lesion. Electronically Signed By: Parish Olmedo acr/leon:06/18/2021 13:14:40 letter sent: Normal Exam ACR BI-RADS Category 1: Negative [id number]
[2021-06-18 12:54] LABS: Appearance Urine UA CLEAR; Bilirubin Urine UA NEGATIVE (NEGATIVE); Color Urine UA YELLOW; Glucose Urine UA NEGATIVE (Negative); Ketones Urine UA NEGATIVE (NEGATIVE); Leukocyte Esterase Urine UA NEGATIVE (NEGATIVE); Nitrite Urine UA NEGATIVE (Negative); Occult Blood Urine UA TRACE-LYSED (Negative); Protein Urine UA NEGATIVE (Negative); Specific Gravity Urine UA <=1.005 (1.000-1.035); Urobilinogen Urine UA 0.2 E.U./dL (0.2)
[2021-06-18 12:55] LABS: pH Urine UA 6.5 (4.5-8.0)
[2021-06-18 13:04] LABS: Bacteria Urine None Seen; Culture Indicated Urine Cult Not Indicated; RBC Urine None Seen (0-5/HPF); Squamous Epithelial Cell Urine 0-1 /HPF (0-5/HPF); WBC Urine None Seen (0-5/HPF)
== END ==
PROVIDERS: PCP Nurse Practitioner Family; Referring Provider Nurse Practitioner Family; Visit Provider Nurse Practitioner Family
DX: Z12.31 Encounter for screening mammogram for malignant neoplasm of breast (principal); Z80.3 Family history of malignant neoplasm of breast; R31.9 Hematuria, unspecified
CPT/HCPCS: 77063; 77067; 81001

== ENCOUNTER → 2021-09-21 10:07 | Outpatient (CLI) | payer OTHER, SELFPAY ==
[2021-09-21 10:55] LABS: Hematocrit 39.9 % (36-46); Hemoglobin 13.7 g/dL (12.0-16.0); Mean Corpuscular HGB Conc 34.4 % (30-36); Mean Corpuscular Hemoglobin 30.8 PG (26-34); Mean Corpuscular Volume 89.5 fL (80-100); Platelet Count 282 X10^3/uL (150-400); Red Blood Cell Count 4.46 X10^6/uL (4.0-5.2); Red Cell Distribution Width 13.2 % (11.6-14.8); White Blood Cell Count 5.7 X10^3/uL (4.5-11.0)
[2021-09-21 11:41] LABS: Alanine Aminotransferase 26 IU/L (<35); Albumin 4.5 g/dL (3.5-5.0); Albumin Globulin Ratio 1.5 (1.0-2.8); Alkaline Phosphatase 68 U/L (38-126); Aspartate Aminotransferase 27 IU/L (14-36); BUN Creatinine Ratio 19.3 (6-22); Bilirubin Total 0.5 mg/dL (0.2-1.3); Blood Urea Nitrogen 17 mg/dL (7-17); Calcium 9.3 mg/dL (8.4-10.2); Carbon Dioxide 29 mmol/L (22-32); Chloride 103 mmol/L (98-107); Cholesterol 208 mg/dL (140-199); Estimated Glomerular Filt Rate > 60.0 mL/min (>60); Globulin 3.1 g/dL (1.7-4.1); Glucose 116 mg/dL (70-100); HDL Cholesterol 67 mg/dL (40-60); HEMOLYSIS < 15 (0-50); LDL Cholesterol Calculated 123 mg/dL (<100); Potassium 4.1 mmol/L (3.4-5.1); Sodium 138 mmol/L (137-145); Total Protein 7.6 g/dL (6.3-8.2); Triglycerides 89 mg/dL (35-150)
[2021-09-21 12:15] LABS: Appearance Urine UA CLEAR; Bilirubin Urine UA NEGATIVE (NEGATIVE); Color Urine UA YELLOW; Glucose Urine UA NEGATIVE (Negative); Ketones Urine UA NEGATIVE (NEGATIVE); Leukocyte Esterase Urine UA NEGATIVE (NEGATIVE); Nitrite Urine UA NEGATIVE (Negative); Occult Blood Urine UA 1+ (Negative); Protein Urine UA NEGATIVE (Negative); Urobilinogen Urine UA 0.2 E.U./dL (0.2)
[2021-09-21 13:25] LABS: RBC Urine 1-5/HPF (0-5/HPF)
[2021-09-21 13:26] LABS: Bacteria Urine None Seen; Culture Indicated Urine Cult Not Indicated; Mucus Urine 1+ (Negative); Squamous Epithelial Cell Urine 5-10 /HPF (0-5/HPF); WBC Urine None Seen (0-5/HPF)
== END ==
PROVIDERS: PCP Nurse Practitioner Family; Referring Provider Nurse Practitioner Family; Visit Provider Nurse Practitioner Family
DX: Z00.00 Encounter for general adult medical examination without abnormal findings (principal); R31.29 Other microscopic hematuria; Z13.6 Encounter for screening for cardiovascular disorders
CPT/HCPCS: 36415; 80053; 80061; 81001; 85027

== ENCOUNTER → 2021-10-27 10:44 | Outpatient (CLI) | payer OTHER, SELFPAY ==
--- NOTE | 2021-10-27 10:45 | DI.CT.S_ITS ---
PROCEDURE: CT KIDNEY URETER BLADDER (KUB) INDICATIONS: hematuria TECHNIQUE: Axial sections were acquired from the lung bases to the pubic symphysis. Coronal and sagittal reformats were performed. For radiation dose reduction, the following was used: automated exposure control, adjustment of mA and/or kV according to patient size. COMPARISON: None. FINDINGS: Image quality: Excellent. Lung bases: Unremarkable. Heart: No significant findings. URINARY: Right Kidney: No stones or hydronephrosis. Right Ureter: No hydroureter. Left Kidney: No stones or hydronephrosis. Left Ureter: No hydroureter. Bladder: Normal wall thickness. No stones. ABDOMEN: Liver: Unremarkable. Gallbladder: Gallbladder is surgically absent. Biliary ducts: Unremarkable. Pancreas: Unremarkable. Spleen: Unremarkable. Adrenal Glands: Unremarkable. Stomach and Bowel: Stomach, small bowel loops, and colon are unremarkable. Appendix is visualized in right lower quadrant and is within normal limits. Peritoneum: No abnormal intraperitoneal fluid. No free air. Ventral Wall: No hernia. Abdominal Nodes: No enlarged retroperitoneal or mesenteric lymph nodes. Vessels: Aorta and inferior vena cava are normal in size. PELVIS: Pelvic Organs: There are suggestion of bilateral ovarian cysts. Uterus is within normal limits. Pelvic Nodes: Unremarkable. Miscellaneous: No inguinal hernias are seen. Bones: No suspicious bony lesion. No acute vertebral body compression fracture. IMPRESSION: 1. No renal stone or hydronephrosis. No hydroureter. Normal appearing urinary bladder. 2. No bowel obstruction or abnormal bowel wall thickening. Normal appendix. No free fluid or free air. 3. Nonspecific small bilateral ovarian cysts. Dictated by: Ede Maya M.D. on 10/27/2021 at 14:41 Approved by: Ede Maya M.D. on 10/27/2021 at 14:52
== END ==
PROVIDERS: PCP Nurse Practitioner Family; Referring Provider Nurse Practitioner Family; Visit Provider Nurse Practitioner Family
DX: R31.9 Hematuria, unspecified (principal); R10.11 Right upper quadrant pain; N83.202 Unspecified ovarian cyst, left side; N83.201 Unspecified ovarian cyst, right side
CPT/HCPCS: 74176

== ENCOUNTER → 2022-06-22 11:44 | Outpatient (CLI) | payer OTHER, SELFPAY ==
--- NOTE | 2022-06-22 | DI.MG.S_ITS ---
BILATERAL DIGITAL SCREENING MAMMOGRAM 3D/2D WITH CAD: 06/22/2022 CLINICAL: Routine screening. Comparison is made to exams dated: 06/18/2021 mammogram, 06/12/2020 mammogram - [facility], 11/13/2018 mammogram, and 08/18/2017 mammogram - outside location. There are scattered areas of fibroglandular density in both breasts (category b / 25%-50% glandular tissue). Current study was also evaluated with a Computer Aided Detection (CAD) system. No significant masses, calcifications, or other findings are seen in either breast. There has been no significant interval change. IMPRESSION: NEGATIVE There is no mammographic evidence of malignancy. A 1 year screening mammogram is recommended. Based on the Tyrer Cuzick model (a risk assessment model) the patient's lifetime risk is 13.0% and her 10 year risk is 2.8%. According to the ACR, ACS, and NCCN guidelines, an annual breast MRI exam along with mammogram is recommended if the patient's lifetime risk is 20% or greater. This exam was interpreted at Station ID: [id number]. NOTE: For mammograms, a report in lay terms will be sent to the patient. Approximately 15% of breast malignancies will not be visualized mammographically. In the management of a palpable breast mass, a negative mammogram must not discourage biopsy of a clinically suspicious lesion. Electronically Signed By: Maria Fernanda [email or web address]:06/22/2022 12:17:56 letter sent: Normal Exam ACR BI-RADS Category 1: Negative [id number]
== END ==
PROVIDERS: PCP Nurse Practitioner Family; Referring Provider Nurse Practitioner Family; Visit Provider Nurse Practitioner Family
DX: Z12.31 Encounter for screening mammogram for malignant neoplasm of breast (principal)
CPT/HCPCS: 77063; 77067